=== PATIENT | female | born 1965 | race Caucasian/White ===

== ENCOUNTER 2016-07-27 13:54 | Inpatient (IN) | payer OTHER ==
[~2016-07-27] VITALS: Ht 157.5 cm; Wt 58.6 kg
[2016-07-27 17:30] VITALS: BP 140/67; PULSE 88; RESP 17
[2016-07-27 17:39] VITALS: Ht 157.5 cm; Wt 58.6 kg
[2016-07-27] MEDS ORDERED: DOCUSATE SODIUM 100 MG CAP PO PRN (19:00)
[2016-07-27] MEDS ORDERED: NACL 0.9% 3 ML SYG IV SCH (19:00)
[2016-07-27] MEDS ORDERED: ONDANSETRON 4 MG INJ IV PRN (19:00)
[2016-07-27] MEDS ORDERED: ACETAMINOPHEN 325 MG TAB PO PRN (19:00)
[2016-07-27] MEDS ORDERED: ZOLPIDEM 5 MG TAB PO PRN (19:00)
[2016-07-27] MEDS ORDERED: HYDROCODONE/APAP (5/325) TAB PO PRN (19:00)
[2016-07-27 20:00] VITALS: PULSE 90
[2016-07-27] MEDS ORDERED: GLUCOSE GEL 15 GRAM TUBE PO PRN ×2 (20:00)
[2016-07-27] MEDS ORDERED: GLUCAGON 1 MG INJ IM PRN (20:00)
[2016-07-27] MEDS ORDERED: GLUCOSE GEL 15 GRAM TUBE BUCCAL PRN (20:00)
[2016-07-27] MEDS ORDERED: DEXTROSE 50% 50 ML SYRINGE IV PRN ×2 (20:00)
[2016-07-27 20:11] VITALS: BP 158/54; RESP 16
[2016-07-27] MEDS ORDERED: INSULIN ASPART [NOVOLOG] 3 ML PEN SC ONE (22:00)
[2016-07-27] MEDS: INSULIN ASPART [NOVOLOG] 3 ML PEN SC SCH (22:14)
[2016-07-27] MEDS: morphine 2 MG INJ IV PRN (22:27)
[2016-07-28] VITALS (11 sets, daily range): BP systolic 119–149; BP diastolic 65–84; PULSE 80–92; RESP 18
[2016-07-28] MEDS: morphine 2 MG INJ IV PRN ×2 (01:25→19:48)
[2016-07-28] MEDS: SOD CHLORIDE 0.9% 1,000 ML IV SCH ×2 (01:26→11:30)
[2016-07-28] MEDS ORDERED: INSULIN GLARGINE [LANtus] 3 ML PEN SC ONE (01:30)
[2016-07-28] MEDS ORDERED: INSULIN ASPART [NOVOLOG] 3 ML PEN SC ONE (01:30)
[2016-07-28] MEDS: CEFEPIME 1GM/50 ML (PMX) 50 ML IVPB SCH ×3 (02:48→22:42)
[2016-07-28] MEDS: ACCU-CHEK XX SCH (02:54)
[2016-07-28 07:06] LABS: ADD SCAN DIFF NO
[2016-07-28 07:10] LABS: ALBUMIN 3.4 g/dl (3.3-4.9)
[2016-07-28 07:11] LABS: POTASSIUM 3.2 mmol/L (3.5-5.1)
[2016-07-28 07:13] LABS: BILIRUBIN,INDIRECT 0.3 mg/dl (0-1.1); BILIRUBIN,TOTAL 0.3 mg/dl (0.2-1.3); CREATININE 0.49 mg/dl (0.44-1.00); TOTAL PROTEIN 6.8 g/dl (6.1-8.1)
[2016-07-28 07:14] LABS: CALCIUM 8.8 mg/dl (8.4-10.2); CHOL/HDL RATIO 4.9 RATIO; MAGNESIUM 1.6 mg/dl (1.7-2.5); PHOSPHORUS 4.8 mg/dl (2.5-4.9)
[2016-07-28 07:15] LABS: BASOPHIL # 0.1 10^3/ul (0.0-0.1); BASOPHILS % 0.5 % (0.0-2.0); EOSINOPHILS # 0.2 10^3/ul (0.0-0.5); EOSINOPHILS % 1.9 % (0.0-7.0); HEMATOCRIT 35.1 % (37.0-47.0); HEMOGLOBIN 11.9 g/dl (12.0-16.0); LYMPHOCYTES # 2.8 10^3/ul (0.8-2.9); LYMPHOCYTES % 27.8 % (15.0-51.0); MEAN CORPUSCULAR HEMOGLOBIN 30.4 pg (29.0-33.0); MEAN CORPUSCULAR HGB CONC 33.9 g/dl (32.0-37.0); MEAN CORPUSCULAR VOLUME 89.8 fl (82.0-101.0); MEAN PLATELET VOLUME 10.8 fl (7.4-10.4); MONOCYTE # 0.9 10^3/ul (0.3-0.9); MONOCYTES % 8.5 % (0.0-11.0); NEUTROPHIL # 6.2 10^3/ul (1.6-7.5); PLATELET COUNT 250 10^3/UL (140-415); RED BLOOD COUNT 3.91 10^6/ul (4.20-5.40); RED CELL DISTRIBUTION WIDTH 12.7 % (11.5-14.5); WHITE BLOOD COUNT 10.2 10^3/ul (4.8-10.8)
[2016-07-28] MEDS: INSULIN ASPART [NOVOLOG] 3 ML PEN SC SCH ×6 (08:16→23:47)
--- NOTE | 2016-07-28 09:01 | HP ---
Date/Time of Note Date/Time of Note DATE: 07/28/16 TIME: 08:49 Assessment/Plan VTE Prophylaxis VTE Prophylaxis Intervention: SCD's Lines/Catheters IV Catheter Type (from Nrsg): Peripheral IV Urinary Cath still in place: No Assessment/Plan Assessment/Plan IMPRESSION 1. Pyelonephritis 2. Hx Diabetes 3. Hx of HTN PLAN Abx f/u urine and blood culture results pain mgmt Insulin for DM Adjust BP meds as needed Need vascular surgeon input regarding possible spleen and left kidney infarct to determine if anticoagulation is appropriate. HPI/ROS Admit Date/Time Admit Date/Time Jul 27, 2016 at 16:32 Hx of Present Illness This is a 50 yo female with hx of HTN and Diabetes who is transferred to [facility] because of insurance reason after she presented with fever and left flank pain. Work-up at outside hospital showed UTI and CT a/p showed possible splenic and left kidney embolic infarct. Denied CP, SOB, N/V. Currently, pt looks comfortable. . PMH/Family/Social Social History Smoking Status: Never smoker Exam/Review of Systems Vital Signs Vitals Vital Signs Date Time Temp Pulse Resp B/P Pulse Ox O2 Delivery O2 Flow Rate FiO2 07/28/16 08:18 86 07/28/16 06:56 98.6 18 133/78 98 07/27/16 17:30 Room Air Intake and Output 07/27/16 07/27/16 07/28/16 14:59 22:59 06:59 Intake Total 505 ml Balance 505 ml Exam Constitutional: alert, oriented, well developed Psych: nl mood/affect, no complaints Head: atraumatic, normocephalic Eyes: EOMI, PERRL Respiratory: clear to auscultation, normal air movement Cardiovascular: nl pulses, regular rate and rhythm Gastrointestinal: other (mild left flank tenderness), soft Extremities: normal pulses Labs Result Diagram: 07/28/1630 07/28/1630 Medications Medications Current Medications Ondansetron HCl (Zofran Inj) 4 mg Q6H PRN IV NAUSEA AND/OR VOMITING; Start at 19:00 Acetaminophen (Tylenol Tab) 650 mg Q6H PRN PO PAIN LEVEL 1-3 OR FEVER Last administered on 07/27/16t 22:04; Admin Dose 650 MG; Start 07/27/16 at 19:00 Acetaminophen/ Hydrocodone Bitart ([place] (5/325)) 1 tab Q6H PRN PO MODERATE PAIN LEVEL 4-6; Start 07/27/16 at 19:00 Morphine Sulfate (morphine) 2 mg Q4H PRN IV SEVERE PAIN LEVEL 7-10 Last administered on 07/28/16 01:25; Admin Dose 2 MG; Start 07/27/16 at 19:00 Docusate Sodium (Colace) 100 mg Q12H PRN PO CONSTIPATION; Start 07/27/16 at 19: 00 Zolpidem Tartrate (Ambien) 5 mg QHS PRN PO SLEEP; Start 07/27/16 at 19:00 Diagnostic Test (Pha) (Accu-Chek) 1 ea 02 XX Last administered on 07/28/16 02: 54; Admin Dose 1 EA; Start 07/28/16 at 02:00 Miscellaneous Information 1 ea NOTE XX ; Start 07/27/16 at 20:00 Glucose (Glutose) 15 gm Q15M PRN PO DECREASED GLUCOSE; Start 07/27/16 at 20:00 Glucose (Glutose) 22.5 gm Q15M PRN PO DECREASED GLUCOSE; Start 07/27/16 at 20: 00 Dextrose (D50w Syringe) 25 ml Q15M PRN IV DECREASED GLUCOSE; Start 07/27/16 at 20:00 Dextrose (D50w Syringe) 50 ml Q15M PRN IV DECREASED GLUCOSE; Start 07/27/16 at 20:00 Glucagon (Glucagen) 1 mg Q15M PRN IM DECREASED GLUCOSE; Start 07/27/16 at 20:00 Glucose 15 gm 15 gm Q15M PRN BUCCAL DECREASED GLUCOSE; Start 07/27/16 at 20:00 Cefepime HCl 50 ml @ 100 mls/hr Q12 IVPB Last administered on 07/28/16 08:13 ; Admin Dose 100 MLS/HR; Start 07/28/16 at 01:30 Sodium Chloride (NS) 1,000 ml @ 100 mls/hr Q10H IV Last administered on 01:26; Admin Dose 100 MLS/HR; Start 07/28/16 at 01:30 Insulin Glargine (Lantus) 15 unit QHS SC ; Start 07/28/16 at 21:00 LAMBERT ZARATE MD Jul 28, 2016 09:00
[2016-07-28] MEDS ORDERED: POTASSIUM CHLORIDE 30 MEQ in SOD CHLORIDE 0.9% 150 ML IVPB ONE (10:00)
[2016-07-28] MEDS ORDERED: MAGNESIUM SULFATE 2 GM/50 ML 50 ML IVPB ONE (12:00)
--- NOTE | 2016-07-28 12:15 | HP ---
DATE OF ADMISSION: 07/27/2016 VASCULAR SURGERY CONSULTATION: Dear Doctors, Mrs. Meza is a 50-year-old female who was transferred to [facility] from outside facility secondary for workup of fever, chills and left flank pain. It seems the patient had underg one a CT scan of the abdomen and pelvis that identified a possible left renal embolic infarct and sp lenic infarcts. A vascular surgery consultation was obtained. At the moment, the patient mentions that she has had a history of previous kidney infection, for which she was seen at an outside hospit [facility] and she was treated there with antibiotics. She denies any family history of hyp ercoagulable state and mentioned that her father is still living and her mom from cancer in her 80s. She has never had any issues with her . She denies any previous events of lower ext remity DVTs or thrombotic syndromes. REVIEW OF SYSTEMS: A 12-point review performed and negative except what is mentioned in the HPI. S he denies currently nausea, vomiting, fever, chills, shortness of breath, chest pain, lower extremit y claudication or rest pain-like symptoms. She denies abdominal pain. PAST MEDICAL HISTORY: Entails hypertension, diabetes, recurrent UTIs. SURGICAL HISTORY: None reported thus far. SOCIAL HISTORY: Denies tobacco, alcohol or illicit drug use or any herbal medications. FAMILY HISTORY: Positive for diabetes and hypertension. PHYSICAL EXAMINATION: GENERAL: Alert and oriented x3, no apparent distress. HEENT: Normocephalic, atraumatic. PERRLA, EOMI. Mucosa moist. NECK: Supple. No carotid bruit. PULMONARY: Clear to auscultation bilaterally. No crackles. CARDIOVASCULAR: S1, S2 present. No murmurs. ABDOMEN: Soft, nontender, nondistended. Bowel sounds positive. LOWER EXTREMITIES: Palpable femoral pulse, palpable pedal pulse. Motor, sensory intact. Cap refil l 2 to 3 seconds. No ulcers. ASSESSMENT AND PLAN: Left renal infarct and splenic infarct: It seems the patient has developed a possible finding on the CT scan of a possible embolic event. Will need to evaluate her aortoiliac d isease for possible embolization; therefore, would recommend obtaining a CT angiography of the abdo men and pelvis. 1. Would further recommend obtaining a 2D echo to evaluate for any cardiac source of an embolic ted rce. 2. Optimize vascular status (BP meds, diet, nutrition, exercise, sugar control, antiplatelets). 3. Discussed findings, plan and management with the patient with a certified transformation analyst and cookie. Thank you for allowing us to partake in the care of your patient. Please call with any questions. We may consider hypercoagulable workup after we have reviewed her imaging studies. Dictated By: VIMAL THAKKAR/SHARRI Conf#: [id number] DID#: [id number]
[2016-07-28] MEDS: SENNA TAB PO SCH (12:31)
[2016-07-28] MEDS ORDERED: IODIXANOL LOCM 100 ML BTL ONE (14:17)
[2016-07-28] MEDS ORDERED: IODIXANOL LOCM 50 ML BTL ONE (14:17)
[2016-07-28] MEDS ORDERED: SOD CHLORIDE 0.9% 100 ML ONE (14:17)
--- NOTE | 2016-07-28 15:42 | PN ---
Date/Time of Note Date/Time of Note DATE: 07/28/16 TIME: 15:38 Assessment/Plan VTE Prophylaxis VTE Prophylaxis Intervention: SCD's Lines/Catheters [facility]from [facility] Peripheral IV Urinary Cath still in place: No Assessment/Plan Chief Complaint/Hosp Course Assessment and plan 1. Pyelonephritis. Monitor for fevers. Antipyretics as needed. Await clinical response to antibiotic therapy. Follow up on urine culture 2. Diabetes. Continue on insulin regimen 3. History of hypertension. We'll provide with antihypertensives as needed 4. 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 Vascular surgeon following. Follow up on CTA of the abdomen and pelvis. Follow up on echocardiogram. Disposition and plan: Follow up on CTA of the abdomen. Follow-up echocardiogram. Continue on antibiotics. Discussed plan of care with Dr. Plaza Problems: Subjective 24 Hr Interval Summary Free Text/Dictation Still reports having some left flank pain l Exam/Review of Systems Vital Signs Vitals Vital Signs Date Time Temp Pulse Resp B/P Pulse Ox O2 Delivery O2 Flow Rate FiO2 07/28/16 15:34 97.9 82 18 145/84 99 07/27/16 17:30 Room Air Intake and Output 07/27/16 07/27/16 07/28/16 15:00 23:00 07:00 Intake Total 505 ml Balance 505 ml Exam Constitutional: alert, oriented Psych: No anxiety Head: atraumatic, normocephalic Eyes: nl conjunctiva Neck: non-tender, supple, No jvd Respiratory: clear to auscultation Cardiovascular: regular rate and rhythm Gastrointestinal: other (minimally tender left flank) Musculoskeletal: No swelling Neurological: SQL DBA II-XII intact, nl mental status, nl speech Skin: nl turgor, No rash or lesions Results Result Diagram: 07/28/1630 07/28/16 0630 Results 24 hrs Laboratory Tests Test 07/27/16 17:22 07/27/16 21:45 07/27/16 23:43 07/28/16 01:23 Bedside Glucose 244 H 357 H 296 H 256 H Test 07/28/16 02:52 07/28/16 06:30 07/28/16 07:45 07/28/16 12:00 Bedside Glucose 214 172 344 H White Blood Count 10.2 Red Blood Count 3.91 L Hemoglobin 11.9 L Hematocrit 35.1 L Mean Corpuscular Volume 89.8 Mean Corpuscular Hemoglobin 30.4 Mean Corpuscular Hemoglobin Concent 33.9 Red Cell Distribution Width 12.7 Platelet Count 250 Mean Platelet Volume 10.8 H Neutrophils % 61.0 Lymphocytes % 27.8 Monocytes % 8.5 Eosinophils % 1.9 Basophils % 0.5 Nucleated Red Blood Cells % 0.0 Neutrophils # 6.2 Lymphocytes # 2.8 Monocytes # 0.9 Eosinophils # 0.2 Basophils # 0.1 Nucleated Red Blood Cells # 0.0 Sodium Level 138 Potassium Level 3.2 L Chloride Level 103 Carbon Dioxide Level 25 Anion Gap 13 Blood Urea Nitrogen 11 Creatinine 0.49 Glucose Level 155 Hemoglobin A1c 12.2 H Calcium Level 8.8 Phosphorus Level 4.8 Magnesium Level 1.6 L Total Bilirubin 0.3 Direct Bilirubin 0.00 Indirect Bilirubin 0.3 Aspartate Amino Transf (AST/SGOT) 16 Alanine Aminotransferase (ALT/SGPT) 22 Alkaline Phosphatase 108 Total Protein 6.8 Albumin 3.4 Globulin 3.40 H Albumin/Globulin Ratio 1.00 Triglycerides Level 219 H Cholesterol Level 173 LDL Cholesterol, Calculated 94 HDL Cholesterol 35 L Cholesterol/HDL Ratio 4.9 Medications Medications Current Medications Ondansetron HCl (Zofran Inj) 4 mg Q6H PRN IV NAUSEA AND/OR VOMITING; Start at 19:00 Acetaminophen (Tylenol Tab) 650 mg Q6H PRN PO PAIN LEVEL 1-3 OR FEVER Last administered on 07/27/16 22:04; Admin Dose 650 MG; Start 07/27/16 at 19:00 Acetaminophen/ Hydrocodone Bitart ([place] (5/325)) 1 tab Q6H PRN PO MODERATE PAIN LEVEL 4-6; Start 07/27/16 at 19:00 Morphine Sulfate (morphine) 2 mg Q4H PRN IV SEVERE PAIN LEVEL 7-10 Last administered on 07/28/16 01:25; Admin Dose 2 MG; Start 07/27/16 at 19:00 Docusate Sodium (Colace) 100 mg Q12H PRN PO CONSTIPATION; Start 07/27/16 at 19: 00 Zolpidem Tartrate (Ambien) 5 mg QHS PRN PO SLEEP; Start 07/27/16 at 19:00 Diagnostic Test (Pha) (Accu-Chek) 1 ea 02 XX Last administered on 07/28/16 02: 54; Admin Dose 1 EA; Start 07/28/16 at 02:00 Miscellaneous Information 1 ea NOTE XX ; Start 07/27/16 at 20:00 Glucose (Glutose) 15 gm Q15M PRN PO DECREASED GLUCOSE; Start 07/27/16 at 20:00 Glucose (Glutose) 22.5 gm Q15M PRN PO DECREASED GLUCOSE; Start 07/27/16 at 20: 00 Dextrose (D50w Syringe) 25 ml Q15M PRN IV DECREASED GLUCOSE; Start 07/27/16 at 20:00 Dextrose (D50w Syringe) 50 ml Q15M PRN IV DECREASED GLUCOSE; Start 07/27/16 at 20:00 Glucagon (Glucagen) 1 mg Q15M PRN IM DECREASED GLUCOSE; Start 07/27/16 at 20:00 Glucose 15 gm 15 gm Q15M PRN BUCCAL DECREASED GLUCOSE; Start 07/27/16 at 20:00 Cefepime HCl 50 ml @ 100 mls/hr Q12 IVPB Last administered on 07/28/16 08:13 ; Admin Dose 100 MLS/HR; Start 07/28/16 at 01:30 Sodium Chloride (NS) 1,000 ml @ 100 mls/hr Q10H IV Last administered on 01:26; Admin Dose 100 MLS/HR; Start 07/28/16 at 01:30 Insulin Glargine (Lantus) 15 unit QHS SC ; Start 07/28/16 at 21:00 Senna (Senokot) 2 tab DAILY PO Last administered on 07/28/16 12:31; Admin Dose 2 TAB; Start 07/28/16 at 12:00 TOMMIE REDD Jul 28, 2016 15:42
--- NOTE | 2016-07-28 16:04 | RADRPT ---
PROCEDURE: CT angiogram of the chest, abdomen and pelvis with bilateral lower extremity runoff and with 3-D reconstructions CLINICAL INDICATION: splenic and left kidney embolic infarct. TECHNIQUE: CT angiogram of the chest, abdomen and pelvis was performed on a multislice CT scanner . The patient was scanned after administration of intravenous contrast. Sagittal and coronal refor matted images were obtained from the axial source images. 3D MIP reformatted images were also create d from the axial source images. DLP 919.03 mGycm CTDI vol 49.29, 6.81 mGy COMPARISON: None FINDINGS: ANGIOGRAM FINDINGS: There is no acute dissection or aneurysm of the thoracic or abdominal aorta. The ascending aorta measures 3.2 cm in diameter. The mid aortic arch measures 2.5 cm in diameter. The descending thoracic aorta measures 2.0 cm in diameter at the level of the left pulmonary artery and 1.8 cm in diameter just above the diaphragmatic hiatus. The celiac, SMA, and KELLIE are widely patent. The main renal arteries are widely patent. There is an accessory renal artery to the lower pole of the right kidney which is widely patent. Common, internal and external iliac arteries are patent bilaterally. Markedly dilated and tortuous bilateral uterine arteries are noted. The uterus has a mildly lobulat ed appearance, likely due to fibroids. RIGHT LOWER EXTREMITY: The SHEETFED PRESS OPERATOR, SFA, and profunda arteries are widely patent. The popliteal artery is widely patent. Infrapopliteal vessels are widely patent and there is good three-vessel runoff to the level of the a nkle. LEFT LOWER EXTREMITY: The SHEETFED PRESS OPERATOR, SFA, and profunda arteries are widely patent. The popliteal artery is widely patent. Infrapopliteal vessels are widely patent and there is good three-vessel runoff to the level of the a nkle. ANCILLARY FINDINGS: The liver is enlarged and demonstrates decreased density consistent with marked fatty infiltration. There are surgical clips in the right upper abdominal quadrant consistent with cholecystectomy. Right greater than left renal cortical scarring is noted. The spleen demonstrates decreased perfusio n posteriorly and inferiorly, likely due to the reported history of a splenic infarct. IMPRESSION: No acute dissection or aneurysm of the thoracic or abdominal aorta. The mesenteric arteries, splenic artery, bilateral renal arteries and an accessory right renal arter y are all widely patent. Right greater than left renal cortical scarring is noted as well as an are a of decreased perfusion in the posterior and inferior aspect of the spleen, likely due to the repor yessica history of infarcts. The arteries of the lower extremities are widely patent with good three-vessel runoff to the level o f the ankles. Enlarged fatty liver. Status post cholecystectomy. RPTAT: EE Physician Magi Date Time Electronically viewed and signed by Sky Boggs Physician on 07/28/2016 16:04 RA/
[2016-07-28] MEDS ORDERED: INSULIN ASPART [NOVOLOG] 3 ML PEN SC SCH (17:55)
[2016-07-28] MEDS ORDERED: INSULIN GLARGINE [LANtus] 3 ML PEN SC SCH (21:00)
[2016-07-29] VITALS (10 sets, daily range): BP systolic 110–147; BP diastolic 57–77; PULSE 76–95; RESP 16–20
[2016-07-29] MEDS: SOD CHLORIDE 0.9% 1,000 ML IV SCH ×4 (00:57→17:14)
[2016-07-29] MEDS: morphine 2 MG INJ IV PRN (00:58)
[2016-07-29] MEDS: ACCU-CHEK XX SCH (02:51)
[2016-07-29] MEDS: INSULIN ASPART [NOVOLOG] 3 ML PEN SC SCH ×7 (08:13→21:04)
[2016-07-29] MEDS: SENNA TAB PO SCH (09:15)
[2016-07-29] MEDS: CEFEPIME 1GM/50 ML (PMX) 50 ML IVPB SCH ×2 (09:15→21:05)
--- NOTE | 2016-07-29 15:46 | PN ---
Date/Time of Note Date/Time of Note DATE: 07/29/16 TIME: 15:42 Assessment/Plan VTE Prophylaxis VTE Prophylaxis Intervention: SCD's Lines/Catheters IV [facility]ter Type (from [facility]): Peripheral IV Urinary Cath still in place: No Assessment/Plan Chief Complaint/Hosp Course Assessment and plan 1. Pyelonephritis. Monitor for fevers. Antipyretics as needed. Await final urine culture. Continue antibiotics for now. 2. Diabetes. Continue on insulin regimen 3. History of hypertension. We'll provide with antihypertensives as needed 4. 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 Vascular surgeon following. Patient did have CTA that did show: - No acute dissection or aneurysm of the thoracic or abdominal aorta. - The mesenteric arteries, splenic artery, bilateral renal arteries and an accessory right renal artery are all widely patent. Right greater than left renal cortical scarring is noted as well as an area of decreased perfusion in the posterior and inferior aspect of the spleen, likely due to the reported history of infarcts.. Discussed with vascular surgeon. No plan for intervention at this time. Continue to monitor for now Disposition and plan: Continue on antibiotics. Follow up on final urine culture. Appears to be improving. Discharge when medically stable Discussed plan of care with Dr. Plaza Problems: Subjective 24 Hr Interval Summary Free Text/Dictation reports less pain at this time Exam/Review of Systems Vital Signs Vitals Vital Signs Date Time Temp Pulse Resp B/P Pulse Ox O2 Delivery O2 Flow Rate FiO2 07/29/16 15:08 97.7 75 18 110/57 100 07/27/16 17:30 Room Air Intake and Output 07/28/16 07/28/16 07/29/16 15:00 23:00 07:00 Intake Total 50 ml 1060 ml 1720 ml Balance 50 ml 1060 ml 1720 ml Exam Constitutional: alert, oriented Psych: nl mood/affect, no complaints Head: atraumatic, normocephalic Eyes: nl conjunctiva Neck: non-tender, supple, No jvd Respiratory: clear to auscultation Cardiovascular: nl pulses, regular rate and rhythm Gastrointestinal: non-tender, soft Musculoskeletal: nl extremities to inspection Extremities: normal pulses Neurological: SOCIAL SERVICE MANAGER II-XII intact, nl mental status, nl speech Skin: nl turgor Results Result Diagram: 07/28/16 0630 07/28/16 0630 Results 24 hrs Laboratory Tests Test 07/28/16 16:55 07/28/16 22:37 07/29/16 02:44 07/29/16 08:04 Bedside Glucose 238 H 262 H 251 H 224 H Test 07/29/16 11:55 Bedside Glucose 304 H Medications Medications Current Medications Ondansetron HCl (Zofran Inj) 4 mg Q6H PRN IV NAUSEA AND/OR VOMITING; Start at 19:00 Acetaminophen (Tylenol Tab) 650 mg Q6H PRN PO PAIN LEVEL 1-3 OR FEVER Last administered on 07/27/16 22:04; Admin Dose 650 MG; Start 07/27/16 at 19:00 Acetaminophen/ Hydrocodone Bitart ([place] (5/325)) 1 tab Q6H PRN PO MODERATE PAIN LEVEL 4-6; Start 07/27/16 at 19:00 Morphine Sulfate (morphine) 2 mg Q4H PRN IV SEVERE PAIN LEVEL 7-10 Last administered on 07/29/16 00:58; Admin Dose 2 MG; Start 07/27/16 at 19:00 Docusate Sodium (Colace) 100 mg Q12H PRN PO CONSTIPATION; Start 07/27/16 at 19: 00 Zolpidem Tartrate (Ambien) 5 mg QHS PRN PO SLEEP; Start 07/27/16 at 19:00 Diagnostic Test (Pha) (Accu-Chek) 1 ea 02 XX Last administered on 07/29/16 02: 51; Admin Dose 1 EA; Start 07/28/16 at 02:00 Miscellaneous Information 1 ea NOTE XX ; Start 07/27/16 at 20:00 Glucose (Glutose) 15 gm Q15M PRN PO DECREASED GLUCOSE; Start 07/27/16 at 20:00 Glucose (Glutose) 22.5 gm Q15M PRN PO DECREASED GLUCOSE; Start 07/27/16 at 20: 00 Dextrose (D50w Syringe) 25 ml Q15M PRN IV DECREASED GLUCOSE; Start 07/27/16 at 20:00 Dextrose (D50w Syringe) 50 ml Q15M PRN IV DECREASED GLUCOSE; Start 07/27/16 at 20:00 Glucagon (Glucagen) 1 mg Q15M PRN IM DECREASED GLUCOSE; Start 07/27/16 at 20:00 Glucose 15 gm 15 gm Q15M PRN BUCCAL DECREASED GLUCOSE; Start 07/27/16 at 20:00 Cefepime HCl 50 ml @ 100 mls/hr Q12 IVPB Last administered on 07/29/16 09:15 ; Admin Dose 100 MLS/HR; Start 07/28/16 at 01:30 Sodium Chloride (NS) 1,000 ml @ 100 mls/hr Q10H IV Last administered on 11:51; Admin Dose 100 MLS/HR; Start 07/28/16 at 01:30 Senna (Senokot) 2 tab DAILY PO Last administered on 07/29/16 09:15; Admin Dose 2 TAB; Start 07/28/16 at 12:00 Insulin Glargine (Lantus) 20 unit QHS SC ; Start 07/29/16 at 21:00 TOMMIE REDD Jul 29, 2016 15:46
[2016-07-29] MEDS ORDERED: INSULIN GLARGINE [LANtus] 3 ML PEN SC SCH (21:00)
[2016-07-30] VITALS (9 sets, daily range): BP systolic 126–143; BP diastolic 61–75; PULSE 72–84; RESP 20
[2016-07-30] MEDS: ACCU-CHEK XX SCH (02:00)
[2016-07-30] MEDS: SOD CHLORIDE 0.9% 1,000 ML IV SCH (04:02)
[2016-07-30] MEDS: INSULIN ASPART [NOVOLOG] 3 ML PEN SC SCH ×4 (08:00→12:32)
[2016-07-30] MEDS: SENNA TAB PO SCH (08:47)
[2016-07-30] MEDS: CEFEPIME 1GM/50 ML (PMX) 50 ML IVPB SCH (09:10)
[2016-07-30] MEDS ORDERED: LANT3I SC (12:17)
[2016-07-30] MEDS ORDERED: CIPR500T4 PO (12:17)
[2016-07-30] MEDS ORDERED: SACC250C PO (12:17)
[2016-07-30] MEDS ORDERED: NOVO3I SC (12:17)
--- NOTE | 2016-07-30 12:18 | PDOCDIS ---
Discharge Instructions DIAGNOSIS Discharge Diagnosis: 1. pyelonephritis 2. diabetes CONDITION Patient Condition: Stable HOME CARE INSTRUCTIONS: Special Diet: 1800 ada FOLLOW UP/APPOINTMENTS Appointments 1. Follow up with your primary care provider in one week TOMMIE REDD Jul 30, 2016 12:18
--- NOTE | 2016-07-31 11:00 | RADRPT ---
Echocardiogram Report Patient Name: WILDER COOK Gender: Female Date: 1965 Study Date: 29-Jul-2016 Measurement Superintendent: JANAY Location: I Ref. Physician: TOMMIE REDD Quality: Adequate Procedures: Transthoracic echocardiogram complete 2D, M-Mode, and Doppler examination, difficult subcostal images. Indications: Suspect valvular emboli. 2D/M Mode Doppler Measurement Value Normal Ranges Measurement Value Normal Ranges AoR Diam MM 2.9 cm AV Peak Mati 1.2 m/sec ACS MM 1.9 cm AV Peak PG 6.2 mmHg LVIDd 2D 3.6 3.5 - 5.6 cm LVOT Peak Mati 1.1 m/sec LVIDs 2D 2.2 2.1 - 4.1 cm LVOT Peak PG 4.6 mmHg LVPWd 2D 1.0 0.6 - 1.1 cm MV E Peak Mati 1.0 m/sec IVSd 2D 1.0 0.6 - 1.1 cm MV A Peak Mati 1.1 m/sec EDV 2D 54.6 cm3 MV E/A 0.9 ESV 2D 10.8 cm3 MV Decel Time 193 msec LA Dimen 2D 3.1 2.3 - 4.0 cm MV Decel Merrick 5 MV E/A 0.9 PV Peak Mati 0.9 m/sec PV Peak PG 4.0 mmHg Findings Left Ventricle: Normal left ventricular systolic function. Normal left ventricular cavity size. Mild concentric left ventricular hypertrophy. Ejection fraction is visually estimated at 60 %. Tissue Doppler/Mitral Doppler indices are within normal limits. Right Ventricle: Normal right ventricular size. Normal right ventricular systolic function. Left Atrium: The left atrium is normal in size. Right Atrium: The right atrium is normal in size. Atrial Septum: Normal atrial septum. Mitral Valve: Normal appearance and function of the mitral valve with trace physiologic regurgitation. Aortic Valve: No significant aortic stenosis or insufficiency. Normal trileaflet aortic valve structure. Tricuspid Valve: Normal appearance of the tricuspid valve. Unable to obtain RVSP due to minimal presence of tricuspid regurgitation. There is trace tricuspid regurgitation. Pulmonic Valve: Normal pulmonic valve appearance. There is mild pulmonic regurgitation. Pericardium: Normal pericardium with no significant pericardial effusion. Aorta: Normal aortic root. IVC: Normal size and normal respiratory collapse consistent with normal right atrial pressure. Pulmonary Artery: Normal pulmonary artery size. Conclusions 1.Normal left ventricular systolic function. Normal left ventricular cavity size. Mild concentric left ventricular hypertrophy. Ejection fraction is visually estimated at 60 %. Tissue Doppler/Mitral Doppler indices are within normal limits. 2.No significant valvular stenosis or regurgitation seen. 3.Unable to obtain RVSP due to minimal presence of tricuspid regurgitation. RA pressure is 3 mmHg. Electronically Signed By: Brennon Locke 31-Jul-2016 10:59:07 -0700 Patient Name: WILDER COOK Study Date: 29-Jul-2016 [id number]
== END 2016-07-30 15:50 | disposition home or self-care (01) | DRG 690 ==
LOC: TEL 16:32
PROVIDERS: ADMIT Family Medicine; ATTEND Family Medicine
DX: N12 Tubulo-interstitial nephritis, not specified as acute or chronic (principal); N28.0 Ischemia and infarction of kidney; I10 Essential (primary) hypertension; E11.9 Type 2 diabetes mellitus without complications; Z79.4 Long term (current) use of insulin
CPT/HCPCS: 75635; 80053; 80061; 82962; 83036; 83735; 84100; 85025; 87086; 93306; J0692; J1815; J2270; J3475; J7030; Q9967

== ENCOUNTER 2016-08-02 17:02 | Emergency (ER) | payer OTHER ==
[~2016-08-02] VITALS: Ht 157.5 cm; Wt 55.0 kg
[~2016-08-02 17:02] MED LIST: CIPR500T4 PO; LANT3I SC; NOVO3I SC; SACC250C PO
[2016-08-02 17:17] VITALS: Ht 157.5 cm; Wt 55.0 kg
[2016-08-02 22:23] LABS: ADD SCAN DIFF NO
[2016-08-02 22:27] LABS: ADD UMIC NO; URINE BILIRUBIN (Dip) NEGATIVE (NEGATIVE); URINE BLOOD (Dip) NEGATIVE (NEGATIVE); URINE COLOR LT. YELLOW (YELLOW); URINE GLUCOSE (Dip) >=1000 % (NEGATIVE); URINE KETONES (Dip) NEGATIVE (NEGATIVE); URINE LEUKOCYTE ESTERASE (Dip) NEGATIVE (NEGATIVE); URINE NITRITE (Dip) NEGATIVE (NEGATIVE); URINE TOTAL PROTEIN (Dip) NEGATIVE (NEGATIVE); URINE UROBILINOGEN (Dip) 0.2 E.U./dL (0.1-1.0)
[2016-08-02 22:35] LABS: HEMATOCRIT 34.7 % (37.0-47.0); HEMOGLOBIN 11.9 g/dl (12.0-16.0); MEAN CORPUSCULAR HEMOGLOBIN 31.2 pg (29.0-33.0); MEAN CORPUSCULAR HGB CONC 34.3 g/dl (32.0-37.0); MEAN CORPUSCULAR VOLUME 91.1 fl (82.0-101.0); MEAN PLATELET VOLUME 10.4 fl (7.4-10.4); PLATELET COUNT 392 10^3/UL (140-415); RED BLOOD COUNT 3.81 10^6/ul (4.20-5.40); RED CELL DISTRIBUTION WIDTH 12.6 % (11.5-14.5); WHITE BLOOD COUNT 8.8 10^3/ul (4.8-10.8)
[2016-08-02 22:39] LABS: POTASSIUM 3.9 mmol/L (3.5-5.1)
[2016-08-02 22:41] LABS: CREATININE 0.56 mg/dl (0.44-1.00)
[2016-08-02 23:19] LABS: EOSINOPHILS # 0.2 10^3/ul (0.0-0.5); LYMPHOCYTES # 3.9 10^3/ul (0.8-2.9); MONOCYTE # 0.6 10^3/ul (0.3-0.9); NEUTROPHIL # 3.9 10^3/ul (1.6-7.5); PLATELET ESTIMATE PLT APPEAR ADEQUATE
[2016-08-02 23:39] VITALS: BP 134/70; PULSE 77; RESP 20; TEMP 98.2
--- NOTE | 2016-08-03 | ERD ---
ER Documentation Chief Complaint Date/Time DATE: 08/02/16 TIME: 23:55 Chief Complaint RECENTLY ADMITTED AND DC'D FOR KIDNEY INFECTION HPI 50-year-old female with a past medical history of diabetes and hypertension presents to the ED for a follow-up examination. States that she was called 4 days ago and was asked to come into the ER for further evaluation. 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 CT angiography showed right greater than left renal cortical scarring is noted as well as an area of decreased perfusion in the posterior and inferior aspect of the spleen, likely due to the reported history of infarcts. Patient was diagnosed and discharged with a prescription for Ciprofloxacin to treat pyelonephritis. Patient states that she feels better. Denies any flank pain, abdominal pain, nausea, vomiting, fever, chills, dizziness, weakness, diarrhea, dysuria, hematuria, urgency, frequency. Patient states that she has been taking her antibiotics consistently. ROS All systems reviewed and are negative except as per history of present illness. Medications Home Meds Active Scripts Saccharomyces Boulardii* (Florastor*) 250 Mg Cap, 500 MG PO BID, #14 CAP Prov:TOMMIE REDD 07/30/16 Ciprofloxacin Hcl* (Ciprofloxacin Hcl*) 500 Mg Tablet, 500 MG PO BID, #14 TAB Prov:TOMMIE REDD 07/30/16 Insulin Glargine* (Lantus*) 100 Unit/Ml Soln, 20 UNIT SC QHS for 30 Days Prov:TOMMIE REDD 07/30/16 Insulin Aspart* (Novolog Insulin Pen*) 100 Unit/Ml Soln, 7 UNIT SC WITH MEALS for 30 Days Prov:TOMMIE REDD 07/30/16 Allergies Allergies: Coded Allergies: No Known Allergy (Unverified , 07/27/16) PMhx/Soc History of Surgery: Yes (hysterectomy) Anesthesia Reaction: No Hx Neurological Disorder: No Hx Respiratory Disorders: No Hx Cardiac Disorders: Yes (HTN) Hx Psychiatric Problems: No Hx Miscellaneous Medical Probl: No Hx Alcohol Use: No Hx Substance Use: No Hx Tobacco Use: No Smoking Status: Never smoker Physical Exam Vitals Vital Signs Date Time Temp Pulse Resp B/P Pulse Ox O2 Delivery O2 Flow Rate FiO2 08/02/16 23:39 98.2 77 20 134/70 98 Room Air 08/02/16 17:17 98.0 81 17 135/69 99 Physical Exam Const: Rpe-jgl-fjxvvxywk, well-nourished. In no acute distress. Head: Atraumatic, normocephalic Eyes: Normal Conjunctiva without injection. No purulent discharge. ENT: Normal external ear, nose. Moist oropharynx without tonsillar exudates. Non -erythematous pharynx. Uvula midline. No drooling. No trismus. Neck: No cervical midline tenderness. Full range of motion. No meningismus. No cervical lymphadenopathy. No JVD. Resp: Clear to auscultation bilaterally. No wheezing, rhonchi, rales, or crackles. No accessory muscle use. No retractions. Cardio: Regular rate and rhythm. No murmurs, rubs or gallops. Abd: Soft, nontender, non distended. Normal bowel sounds. No palpable masses. No rebound tenderness. No guarding. Negative McBurney's point. Negative psoas sign. Negative obturator sign. Skin: No petechiae or rashes Back: No midline tenderness. No CVA tenderness. Ext: No cyanosis, or edema. Neur: Awake and alert. Normal gait. Normal coordination. Psych: Normal Mood and Affect Result Diagram: 08/02/16215508/02/162155 Results 24 hrs Laboratory Tests Test 08/02/16 21:45 08/02/16 21:56 Urine Color LT. YELLOW Urine Clarity CLEAR Urine pH 5.0 Urine Specific [place] >=1.030 Urine Ketones NEGATIVE Urine Nitrite NEGATIVE Urine Bilirubin NEGATIVE Urine Urobilinogen 0.2 E.U./dL Urine Leukocyte Esterase NEGATIVE Urine Hemoglobin NEGATIVE Urine Glucose >=1000% Urine Total Protein NEGATIVE White Blood Count 8.810^3/ul Red Blood Count 3.8110^6/ul Hemoglobin 11.9g/dl Hematocrit 34.7% Mean Corpuscular Volume 91.1fl Mean Corpuscular Hemoglobin 31.2pg Mean Corpuscular Hemoglobin Concent 34.3g/dl Red Cell Distribution Width 12.6% Platelet Count 89539^3/UL Mean Platelet Volume 10.4fl Neutrophils % 44.0% Lymphocytes % 44.0% Reactive Lymphocytes % 3.0% Monocytes % 7.0% Eosinophils % 2.0% Neutrophils # 3.910^3/ul Lymphocytes # 3.910^3/ul Monocytes # 0.610^3/ul Eosinophils # 0.210^3/ul Platelet Estimate PLT APPEAR ADEQUATE Sodium Level 135mmol/L Potassium Level 3.9mmol/L Chloride Level 98mmol/L Carbon Dioxide Level 24mmol/L Anion Gap 17 Blood Urea Nitrogen 20mg/dl Creatinine 0.56mg/dl Glucose Level 352mg/dl Calcium Level 10.0mg/dl Procedures/MDM This is a 50-year-old female patient with a past medical history of diabetes and hypertension presents to the ED for a follow-up examination. Patient is afebrile and nontoxic-appearing. This case was discussed with my supervising physician, Dr. Qiu. We both agreed to order a CBC, BMP, UA to further evaluate patient. CBC: No leukocytosis. No e/o of systemic infection. No e/o anemia. BMP: No e/o severe acidosis, alkalosis, renal failure, diabetic ketoacidosis Urine: No leukocyte esterase, no nitrites, no hematuria. Patient's initial BUN was 11 and creatinine was 0.49 on July 28, 2016. Today her BUN is 20 and creatinine is 0.56. Patient's labs are within normal limits. Low suspicion for acute renal injury/failure, DKA, appendicitis, cholecystitis , bowel obstruction, dehydration, acute splenic or renal injury, or other emergent conditions. This was discussed with my supervising physician, Dr. Qiu who agreed that patient can be managed on an outpatient basis. Previous patient's visit stated that vascular surgeon stated that patient did not need anticoagulation treatment at this time, plan is for monitoring. Strictly instructed patient to receive good follow up care with primary care physician for monitoring. Discharge medications: Continue to take and complete the course of antibiotics. Follow up with primary care physician in 1-2 days. Instructed patient to return to the ED sooner for any worsening symptoms. Patient's questions were answered. Patient understood and agreed with discharge plan. Patient discharged stable. Departure Diagnosis: Primary Impression: Follow-up examination Condition: Stable Patient Instructions: Pyelonephritis Referrals: COMMUNITY CLINICS YOU HAVE RECEIVED A MEDICAL SCREENING EXAM AND THE RESULTS INDICATE THAT YOU DO NOT HAVE A CONDITION THAT REQUIRES URGENT TREATMENT IN THE EMERGENCY DEPARTMENT. FURTHER EVALUATION AND TREATMENT OF YOUR CONDITION CAN WAIT UNTIL YOU ARE SEEN IN YOUR DOCTORS OFFICE WITHIN THE NEXT 1-2 DAYS. IT IS YOUR RESPONSIBILITY TO MAKE AN APPOINTMENT FOR FOLOW-UP CARE. IF YOU HAVE A PRIMARY DOCTOR --you should call your primary doctor and schedule an appointment IF YOU DO NOT HAVE A PRIMARY DOCTOR YOU CAN CALL OUR PHYSICIAN REFERRAL HOTLINE AT IF YOU CAN NOT AFFORD TO SEE A PHYSICIAN YOU CAN CHOSE FROM THE FOLLOWING [facility] [address] [facility] [address] [facility] [address] [facility] [address] [facility] [address] [facility] [address] [address] [facility] [address] [facility] [facility] YOU HAVE RECEIVED A MEDICAL SCREENING EXAM AND THE RESULTS INDICATE THAT YOU DO NOT HAVE A CONDITION THAT REQUIRES URGENT TREATMENT IN THE EMERGENCY DEPARTMENT. FURTHER EVALUATION AND TREATMENT OF YOUR CONDITION CAN WAIT UNTIL YOU ARE SEEN IN YOUR DOCTORS OFFICE WITHIN THE NEXT 1-2 DAYS. IT IS YOUR RESPONSIBILITY TO MAKE AN APPOINTMENT FOR FOLOW-UP CARE. IF YOU HAVE A PRIMARY DOCTOR --you should call your primary doctor and schedule and appointment IF YOU DO NOT HAVE A PRIMARY DOCTOR YOU CAN CALL OUR PHYSICIAN REFERRAL HOTLINE AT . IF YOU CAN NOT AFFORD TO SEE A PHYSICIAN YOU CAN CHOSE FROM THE FOLLOWING [facility]: [facility] [address] [place] [address] [facility] [address] [place] [address] [facility] [address] [place] [address] [facility] URGENT CARE/SPECIALTIES Additional Instructions: Llame al doctor MAANA y jacqui aly SREEKANTH PARA DENTRO DE 1-2 MARTELL.Dgale a la secretaria que nosotros le instruimos hacer esta sreekanth.Avise o llame si fisher condicin se empeora antes de la sreekanth. Regresa aqui si peor o no mejor. ALMA SINGLETON PA-C Aug 03, 2016 00:00
== END 2016-08-02 23:40 | disposition home or self-care (01) ==
LOC: FTE 17:02
DX: Z09 Encounter for follow-up examination after completed treatment for conditions other than malignant neoplasm (principal); I10 Essential (primary) hypertension; E11.9 Type 2 diabetes mellitus without complications; Z79.4 Long term (current) use of insulin
CPT/HCPCS: 36415; 80048; 81003; 85025; 99283

== ENCOUNTER 2016-09-04 18:57 | Emergency (ER) | payer OTHER ==
[~2016-09-04] VITALS: Ht 157.5 cm; Wt 52.2 kg
[2016-09-04 19:09] VITALS: Ht 157.5 cm; Wt 52.2 kg
[2016-09-04] MEDS ORDERED: SOD CHLORIDE 0.9% 1,000 ML IV STA (20:00)
[2016-09-04] MEDS ORDERED: ONDANSETRON 4 MG INJ IV STA (20:00)
[2016-09-04] MEDS: morphine 2 MG INJ IV STA ×2 (20:26→22:35)
[2016-09-04] MEDS ORDERED: INSU100I12 SQ (20:28)
[2016-09-04] MEDS ORDERED: METF1000 PO (20:30)
[2016-09-04] MEDS ORDERED: LISI10TA2 PO (20:30)
[2016-09-04] MEDS ORDERED: LANT3I SC (20:32)
[2016-09-04 20:54] LABS: ADD SCAN DIFF NO
[2016-09-04 20:58] LABS: BASOPHILS % 0.4 % (0.0-2.0); EOSINOPHILS # 0.2 10^3/ul (0.0-0.5); EOSINOPHILS % 1.9 % (0.0-7.0); HEMATOCRIT 38.4 % (37.0-47.0); HEMOGLOBIN 12.7 g/dl (12.0-16.0); LYMPHOCYTES # 3.8 10^3/ul (0.8-2.9); LYMPHOCYTES % 42.1 % (15.0-51.0); MEAN CORPUSCULAR HEMOGLOBIN 30.3 pg (29.0-33.0); MEAN CORPUSCULAR HGB CONC 33.1 g/dl (32.0-37.0); MEAN CORPUSCULAR VOLUME 91.6 fl (82.0-101.0); MEAN PLATELET VOLUME 10.9 fl (7.4-10.4); MONOCYTE # 0.4 10^3/ul (0.3-0.9); MONOCYTES % 4.7 % (0.0-11.0); NEUTROPHIL # 4.6 10^3/ul (1.6-7.5); NEUTROPHILS % 50.7 % (39.0-77.0); PLATELET COUNT 352 10^3/UL (140-415); RED BLOOD COUNT 4.19 10^6/ul (4.20-5.40); RED CELL DISTRIBUTION WIDTH 12.9 % (11.5-14.5); WHITE BLOOD COUNT 9.1 10^3/ul (4.8-10.8)
[2016-09-04 21:00] LABS: ADD UMIC NO; URINE BILIRUBIN (Dip) NEGATIVE (NEGATIVE); URINE BLOOD (Dip) NEGATIVE (NEGATIVE); URINE COLOR LT. YELLOW (YELLOW); URINE GLUCOSE (Dip) >=1000 % (NEGATIVE); URINE KETONES (Dip) NEGATIVE (NEGATIVE); URINE LEUKOCYTE ESTERASE (Dip) NEGATIVE (NEGATIVE); URINE NITRITE (Dip) NEGATIVE (NEGATIVE); URINE TOTAL PROTEIN (Dip) NEGATIVE (NEGATIVE); URINE UROBILINOGEN (Dip) 0.2 E.U./dL (0.1-1.0)
[2016-09-04 21:16] LABS: ALBUMIN 4.4 g/dl (3.3-4.9); POTASSIUM 3.9 mmol/L (3.5-5.1)
[2016-09-04 21:18] LABS: BILIRUBIN,INDIRECT 0.1 mg/dl (0-1.1); BILIRUBIN,TOTAL 0.1 mg/dl (0.2-1.3); CREATININE 0.61 mg/dl (0.44-1.00)
[2016-09-04 21:19] LABS: ALBUMIN/GLOBULIN RATIO 1.25; CALCIUM 9.9 mg/dl (8.4-10.2); TOTAL PROTEIN 7.9 g/dl (6.1-8.1)
--- NOTE | 2016-09-04 23:48 | RADRPT ---
PROCEDURE: XR Abdomen. CLINICAL INDICATION: Abdominal pain. TECHNIQUE: 4 frontal views of the abdomen. COMPARISON: None. FINDINGS: The bowel gas pattern is unremarkable. Cholecystectomy clips are present. There is no bowel obstruct ion or free air. There is no organomegaly. There is no abnormal calcification. There are small to moderate marginal osteophytes along the spine. IMPRESSION: Unremarkable bowel gas pattern. Status post cholecystectomy. .Puneet Bello MD, MD Date Time Electronically viewed and signed by .Puneet Bello MD, on 09/04/2016 23:48 .T/
[2016-09-05] MEDS ORDERED: KETOROLAC 30 MG INJ IV STA (00:20)
[2016-09-05] MEDS ORDERED: NAPR-688 PO (00:26)
[2016-09-05] MEDS ORDERED: POLY17PO6 PO (00:26)
[2016-09-05] MEDS ORDERED: RANI150T9 PO (00:26)
[2016-09-05] MEDS ORDERED: ONDA4TAB11 PO (00:29)
--- NOTE | 2016-09-05 00:35 | ERD ---
ER Documentation Chief Complaint Date/Time DATE: 09/05/16 TIME: 00:31 Chief Complaint AP X1 WK OFF AND ON. RECENTLY D/C FROM [facility] 07/30. FEELS TIRED HPI 51-year-old female reports abdominal pain on and off for a week it is crampy pain in different parts of her abdomen at different times but it comes and goes.. States that she is constipated currently. She is more tired than usual. She denies fever and chills. Denies vomiting. ROS All systems reviewed and are negative except as per history of present illness. Medications Home Meds Active Scripts Ondansetron (Zofran Odt) 4 Mg Tab.rapdis, 4 MG PO Q6, #10 Prov:LEONELAKEV DO 09/05/16 Polyethylene Glycol* (Miralax*) 17 Gm Powd.pack, 17 GM PO DAILY, #7 PACKET Prov:LEONELAKEV DO 09/05/16 Naproxen* (Naproxen*) 500 Mg Tablet, 500 MG PO BID Y for PAIN, #20 TAB Prov:LEONELAKEV DO 09/05/16 Ranitidine Hcl* (Zantac*) 150 Mg Tablet, 150 MG PO BID Y for EPIGASTRIC PAIN, # 30 TAB Prov:KEV GIPSON DO 09/05/16 Reported Medications Insulin Glargine* (Lantus*) 100 Unit/Ml Soln, 20 UNIT SC QHS, #1 VIAL 09/04/16 Lisinopril* (Lisinopril*) 10 Mg Tablet, 10 MG PO DAILY, #30 TAB 09/04/16 Metformin Hcl* (Metformin Hcl*) 1,000 Mg Tablet, 1000 MG PO WITH BREAKFAST DINNE , #60 TAB 09/04/16 Insulin Lispro (Humalog Kwikpen U-100) 100 Unit/1 Ml Insuln.pen, 7 UNIT SQ AC MEALS 09/04/16 Discontinued Scripts Saccharomyces Boulardii* (Florastor*) 250 Mg Cap, 500 MG PO BID, #14 CAP Prov:TOMMIE REDD 07/30/16 Ciprofloxacin Hcl* (Ciprofloxacin Hcl*) 500 Mg Tablet, 500 MG PO BID, #14 TAB Prov:TOMMIE REDD 07/30/16 Insulin Glargine* (Lantus*) 100 Unit/Ml Soln, 20 UNIT SC QHS for 30 Days Prov:TOMMIE REDD 07/30/16 Insulin Aspart* (Novolog Insulin Pen*) 100 Unit/Ml Soln, 7 UNIT SC WITH MEALS for 30 Days Prov:TOMMIE REDD 07/30/16 Allergies Allergies: Coded Allergies: No Known Allergy (Unverified , 09/04/16) PMhx/Soc History of Surgery: Yes (hysterectomy) Anesthesia Reaction: No Hx Neurological Disorder: No Hx Respiratory Disorders: No Hx Cardiac Disorders: Yes (HTN) Hx Psychiatric Problems: No Hx Miscellaneous Medical Probl: No Hx Alcohol Use: No Hx Substance Use: No Hx Tobacco Use: No Smoking Status: Never smoker Physical Exam Vitals Vital Signs Date Time Temp Pulse Resp B/P Pulse Ox O2 Delivery O2 Flow Rate FiO2 09/04/16 23:10 98.2 76 16 135/85 100 Room Air 09/04/16 19:09 97.4 94 18 133/67 99 Physical Exam Const: [] No distress Head: Atraumatic Eyes: Normal Conjunctiva ENT: Normal External Ears, Nose and Mouth. Neck: Full range of motion..~ No meningismus. Resp: Clear to auscultation bilaterally Cardio: Regular rate and rhythm, no murmurs Abd: Soft, mild mid left abdominal pain without guarding or rebound, non distended. Normal bowel sounds Skin: No petechiae or rashes Back: No midline or flank tenderness Ext: No cyanosis, or edema Neur: Awake and alert and oriented 3, no focal deficits Psych: Normal Mood and Affect Result Diagram: 09/04/16201909/04/162019 Results 24 hrs Laboratory Tests Test 09/04/16 20:20 09/04/16 20:28 White Blood Count 9.110^3/ul Red Blood Count 4.1910^6/ul Hemoglobin 12.7g/dl Hematocrit 38.4% Mean Corpuscular Volume 91.6fl Mean Corpuscular Hemoglobin 30.3pg Mean Corpuscular Hemoglobin Concent 33.1g/dl Red Cell Distribution Width 12.9% Platelet Count 53568^3/UL Mean Platelet Volume 10.9fl Neutrophils % 50.7% Lymphocytes % 42.1% Monocytes % 4.7% Eosinophils % 1.9% Basophils % 0.4% Nucleated Red Blood Cells % 0.0/100WBC Neutrophils # 4.610^3/ul Lymphocytes # 3.810^3/ul Monocytes # 0.410^3/ul Eosinophils # 0.210^3/ul Basophils # 0.010^3/ul Nucleated Red Blood Cells # 0.010^3/ul Sodium Level 136mmol/L Potassium Level 3.9mmol/L Chloride Level 95mmol/L Carbon Dioxide Level 23mmol/L Anion Gap 22 Blood Urea Nitrogen 27mg/dl Creatinine 0.61mg/dl Glucose Level 368mg/dl Calcium Level 9.9mg/dl Total Bilirubin 0.1mg/dl Direct Bilirubin 0.00mg/dl Indirect Bilirubin 0.1mg/dl Aspartate Amino Transf (AST/SGOT) 18IU/L Alanine Aminotransferase (ALT/SGPT) 27IU/L Alkaline Phosphatase 144IU/L Total Protein 7.9g/dl Albumin 4.4g/dl Globulin 3.50g/dl Albumin/Globulin Ratio 1.25 Lipase 151U/L Urine Color LT. YELLOW Urine Clarity CLEAR Urine pH 5.0 Urine Specific [place] 1.015 Urine Ketones NEGATIVE Urine Nitrite NEGATIVE Urine Bilirubin NEGATIVE Urine Urobilinogen 0.2 E.U./dL Urine Leukocyte Esterase NEGATIVE Urine Hemoglobin NEGATIVE Urine Glucose >=1000% Urine Total Protein NEGATIVE Current Medications Medications (Trade) Dose Ordered Sig/Theresa Route PRN Reason Start Time Stop Time Status Last Admin Dose Admin Sodium Chloride (NS) 1,000 ml @ 1,000 mls/hr Q1H STAT IV 09/04/16 20:00 09/04/16 20:59 DC 09/04/16 20:28 Morphine Sulfate (morphine) 2 mg ONCE STAT IV 09/04/16 20:00 09/04/16 20:02 DC 09/04/16 22:35 Ondansetron HCl (Zofran Inj) 4 mg ONCE STAT IV 09/04/16 20:00 09/04/16 20:02 DC 09/04/16 20:28 Ketorolac Tromethamine (Toradol) 30 mg ONCE STAT IV 09/05/16 00:20 09/05/16 00:21 DC Procedures/MDM Abdominal pain and constipation. Also has elevated sugar. She was given normal saline as well as morphine with Zofran along her morphine. She has a benign abdominal exam except for the high sugar has no other abnormalities. No DKA. I have very low suspicion for any surgical abdominal emergency. Patient states that she has medication and takes insulin at home for sugar and also has a way to monitor it. Not going to give any additional hypoglycemic medicines at this time. Will give her some MiraLAX for constipation as well as Zantac and naproxen. 2 mg of morphine made her pain much better than Toradol IV almost relieved her abdominal pain. Abdominal x-ray interpretation: I see no acute process, some retained stool in the left colon, nonspecific bowel gas pattern, no free air, no fractures Departure Diagnosis: Primary Impression: Hyperglycemia Additional Impression: Abdominal pain Condition: Stable Patient Instructions: Abdominal Pain, Diabetic Hyperglycemia Referrals: [facility] (PCP) Additional Instructions: Llame al doctor MAANA y jacqui aly SREEKANTH PARA DENTRO DE 2-3 MARTELL.Dgale a la secretaria que nosotros le instruimos hacer esta sreekanth.Avise o llame si fisher condicin se empeora antes de la sreekanth. Regresa aqui si peor o no mejor. KEV GIPSON DO September 05, 2016 00:35
[2016-09-05 00:40] VITALS: BP 130/80; PULSE 75; RESP 16; TEMP 98.2
== END 2016-09-05 00:40 | disposition home or self-care (01) ==
LOC: FTE 18:57 → E/R 09-05 00:40
DX: E11.9 Type 2 diabetes mellitus without complications (principal); I10 Essential (primary) hypertension; Z79.4 Long term (current) use of insulin; Z79.84 Long term (current) use of oral hypoglycemic drugs
CPT/HCPCS: 36415; 74010; 80053; 81003; 83690; 85025; 96374; 96375; J1885; J2270; J2405; J7030; Z7502

== ENCOUNTER 2016-09-27 17:20 | Emergency (ER) | payer OTHER ==
[~2016-09-27] VITALS: Ht 152.4 cm; Wt 53.0 kg
[~2016-09-27 17:20] MED LIST changes: -CIPR500T4 PO; +INSU100I12 SQ; +LISI10TA2 PO; +METF1000 PO; +NAPR-688 PO; -NOVO3I SC; +ONDA4TAB11 PO; +POLY17PO6 PO; +RANI150T9 PO; -SACC250C PO
[2016-09-27 17:31] VITALS: Ht 152.4 cm; Wt 53.0 kg
[2016-09-27] MEDS ORDERED: AMOXICILLIN 500 MG CAP PO STA (17:56)
[2016-09-27] MEDS ORDERED: ACETAMINOPHEN 500 MG TAB PO STA (17:56)
[2016-09-27] MEDS ORDERED: HYDR-906 PO (17:59)
[2016-09-27] MEDS ORDERED: KETOROLAC 30 MG INJ IM STA (17:59)
[2016-09-27] MEDS ORDERED: AMO500 PO (17:59)
--- NOTE | 2016-09-27 18:49 | ERD ---
ER Documentation Chief Complaint Date/Time DATE: 09/27/16 TIME: 18:44 Chief Complaint tooth pain x 3 days; HPI This is a 51-year-old female with history of diabetes type 2 and hypertension presenting the emergency room complaining of upper incisor pain for the past 3 days. Patient states the pain is constant, 8 out of 10 and radiating upward to her nose. Patient denies any fevers. Patient states that she has an appointment to see a dentist tomorrow. ROS All systems reviewed and are negative except as per history of present illness. Medications Home Meds Active Scripts Hydrocodone/Acetaminophen ([place] 5-325 Tablet) 1 Each Tablet, 1 TAB PO Q6H Y for PAIN, #20 TAB Prov:PORSHA BAIRD PA-C 09/27/16 Amoxicillin* (Amoxicillin*) 500 Mg Cap, 500 MG PO BID for 10 Days, CAP Prov:PORSHA BAIRD PA-C 09/27/16 Ondansetron (Zofran Odt) 4 Mg Tab.rapdis, 4 MG PO Q6, #10 Prov:KEV GIPSON DO 09/05/16 Polyethylene Glycol* (Miralax*) 17 Gm Powd.pack, 17 GM PO DAILY, #7 PACKET Prov:KEV GIPSON DO 09/05/16 Naproxen* (Naproxen*) 500 Mg Tablet, 500 MG PO BID Y for PAIN, #20 TAB Prov:KEV GIPSON DO 09/05/16 Ranitidine Hcl* (Zantac*) 150 Mg Tablet, 150 MG PO BID Y for EPIGASTRIC PAIN, # 30 TAB Prov:KEV GIPSON DO 09/05/16 Reported Medications Insulin Glargine* (Lantus*) 100 Unit/Ml Soln, 20 UNIT SC QHS, #1 VIAL 09/04/16 Lisinopril* (Lisinopril*) 10 Mg Tablet, 10 MG PO DAILY, #30 TAB 09/04/16 Metformin Hcl* (Metformin Hcl*) 1,000 Mg Tablet, 1000 MG PO WITH BREAKFAST DINNE , #60 TAB 09/04/16 Insulin Lispro (Humalog Kwikpen U-100) 100 Unit/1 Ml Insuln.pen, 7 UNIT SQ AC MEALS 09/04/16 Allergies Allergies: Coded Allergies: No Known Allergy (Unverified , 6/14/17) PMhx/Soc History of Surgery: Yes (hysterectomy) Anesthesia Reaction: No Hx Neurological Disorder: No Hx Respiratory Disorders: No Hx Cardiac Disorders: Yes (HTN) Hx Psychiatric Problems: No Hx Miscellaneous Medical Probl: No Hx Alcohol Use: No Hx Substance Use: No Hx Tobacco Use: No Smoking Status: Never smoker Physical Exam Vitals Vital Signs Date Time Temp Pulse Resp B/P Pulse Ox O2 Delivery O2 Flow Rate FiO2 09/27/16 17:31 98.8 110 18 158/81 98 Physical Exam Const: Well-developed well-nourished no acute distress Head: Atraumatic Eyes: Normal Conjunctiva ENT: DKA in the central incisor of the upper mouth, poor dental hygiene, no erythema or swelling of the face Neck: Full range of motion..~ No meningismus. Resp: Clear to auscultation bilaterally Cardio: Regular rate and rhythm, no murmurs Abd: Soft, non tender, non distended. Normal bowel sounds Skin: No petechiae or rashes Back: No midline or flank tenderness Ext: No cyanosis, or edema Neur: Awake and alert Psych: Normal Mood and Affect Results 24 hrs Current Medications Medications (Trade) Dose Ordered Sig/Theresa Route PRN Reason Start Time Stop Time Status Last Admin Dose Admin Amoxicillin (Amoxicillin) 500 mg ONCE STAT PO 09/27/16 17:56 09/27/16 17:58 DC 09/27/16 18:13 Acetaminophen (Tylenol Tab) 1,000 mg ONCE STAT PO 09/27/16 17:56 09/27/16 18:00 DC Ketorolac Tromethamine (Toradol) 30 mg ONCE STAT IM 09/27/16 17:59 09/27/16 18:00 DC 09/27/16 18:05 Procedures/MDM This is a 51-year-old female presenting to the emergency room with upper central incisor pain for the past 3 days. On examination there was evidence of a lot of decay, it appears that the patient will need a tooth extraction. Patient already has an appointment to see dentist tomorrow. In the ED patient was given Toradol for pain and her first dose of amoxicillin for possible tooth infection. Patient given prescription for short course of [place] until she is able to follow-up with her dentist tomorrow. There was no evidence of facial cellulitis or deep space infection. Patient is stable for discharge for home. Discussed return to the ER for any worsening symptoms. She understands and agrees with plan Departure Diagnosis: Primary Impression: Pain, dental Condition: Stable Patient Instructions: Dental Pain Additional Instructions: Visite a fisher edu cruz para un EXAMEN.Regrese a estas instalaciones si no se mejora alysa esperbamos o alysa le dijimos. [place] toda la medicina juan luis y alysa se le indic. Regrese a estas instalaciones si no se mejora alysa esperbamos o alysa le dijimos. La medicina que se le recet puede causarle sueo.NO DEBE MANEJAR NI OPERAR MAQUINARIAS PELIGROSAS mientras esta tomando esta medicina! PORSHA BAIRD PA-C Sep 27, 2016 18:49
== END 2016-09-27 18:26 | disposition home or self-care (01) ==
LOC: FTE 17:20
DX: K08.89 Other specified disorders of teeth and supporting structures (principal); I10 Essential (primary) hypertension; E11.9 Type 2 diabetes mellitus without complications; Z79.4 Long term (current) use of insulin; Z79.84 Long term (current) use of oral hypoglycemic drugs
CPT/HCPCS: J1885; Z7610; 96372

== ENCOUNTER 2017-02-07 13:31 | Emergency (ER) | payer OTHER ==
[~2017-02-07] VITALS: Ht 157.5 cm; Wt 54.0 kg
[~2017-02-07 13:31] MED LIST changes: +AMOX500C2 PO; +HYDR-906 PO
[2017-02-07 13:35] VITALS: Ht 157.5 cm; Wt 54.0 kg
--- NOTE | 2017-02-07 16:20 | ERD ---
ER Documentation Chief Complaint Chief Complaint DIZZINESS X2 DAYS, HEADACHE HPI 51 y/o female with history of hypertension, diabetes, hypercholesterolemia, presents to the emergency department with her son, complaining of 1 week with progressive weakness and fatigue. The patient started for the last 2 days she has been feeling dizzy with mild headache. Refers good compliance with medications, no side effects. Denies fevers, chills, no chest pain, no cough, no abdominal pain, no urinary symptoms. ROS SYSTEMIC symptoms: No fever, no chills, no night sweats EYE symptoms: No eyesight problems. OTOLARYNGEAL symptoms: No hearing loss. CARDIOVASCULAR symptoms: No chest pain or discomfort, no palpitations. PULMONARY symptoms: No dyspnea, no cough, no wheezing. GASTROINTESTINAL symptoms: No abdominal pain, no nausea, no vomiting SKIN no rashes MUSCULOSKELETAL symptoms: No arthralgias, no muscle aches. NEUROLOGY symptoms: No headache, no confusion, no syncope, no numbness or tingling. All systems reviewed and are negative except as per history of present illness. Medications Home Meds Active Scripts Hydrocodone/Acetaminophen ([place] 5-325 Tablet) 1 Each Tablet, 1 TAB PO Q6H Y for PAIN, #20 TAB Prov:PORSHA BAIRD PA-C 09/27/16 Amoxicillin* (Amoxicillin*) 500 Mg Cap, 500 MG PO BID for 10 Days, CAP Prov:PORSHA BAIRD PA-C 09/27/16 Ondansetron (Zofran Odt) 4 Mg Tab.rapdis, 4 MG PO Q6, #10 Prov:KEV GIPSON DO 09/05/16 Polyethylene Glycol* (Miralax*) 17 Gm Powd.pack, 17 GM PO DAILY, #7 PACKET Prov:KEV GIPSON DO 09/05/16 Naproxen* (Naproxen*) 500 Mg Tablet, 500 MG PO BID Y for PAIN, #20 TAB Prov:KEV GIPSON DO 09/05/16 Ranitidine Hcl* (Zantac*) 150 Mg Tablet, 150 MG PO BID Y for EPIGASTRIC PAIN, # 30 TAB Prov:KEV GIPSON DO 09/05/16 Reported Medications Insulin Glargine* (Lantus*) 100 Unit/Ml Soln, 20 UNIT SC QHS, #1 VIAL 09/04/16 Lisinopril* (Lisinopril*) 10 Mg Tablet, 10 MG PO DAILY, #30 TAB 09/04/16 Metformin Hcl* (Metformin Hcl*) 1,000 Mg Tablet, 1000 MG PO WITH BREAKFAST DINNE , #60 TAB 09/04/16 Insulin Lispro (Humalog Kwikpen U-100) 100 Unit/1 Ml Insuln.pen, 7 UNIT SQ AC MEALS 09/04/16 Allergies Allergies: Coded Allergies: No Known Allergy (Unverified , 09/27/16) PMhx/Soc History of Surgery: Yes (hysterectomy) Anesthesia Reaction: No Hx Neurological Disorder: No Hx Respiratory Disorders: No Hx Cardiac Disorders: Yes (HTN) Hx Psychiatric Problems: No Hx Miscellaneous Medical Probl: Yes (DM) Hx Alcohol Use: No Hx Substance Use: No Hx Tobacco Use: No Smoking Status: Never smoker Physical Exam Vitals Vital Signs Date Time Temp Pulse Resp B/P Pulse Ox O2 Delivery O2 Flow Rate FiO2 02/07/17 19:18 98.7 82 16 134/74 100 Room Air 02/07/17 13:35 99.0 88 20 118/69 99 Physical Exam Patient is in no acute distress, vital signs stable. Alert and fully oriented. EYES: PERRLA, EOMI, Sclera and conjunctiva appear normal. EARS: Canals clear, tympanic membranes WNL THROAT: Normal oropharynx. NECK: Supple, No lymphadenopathy. Full ROM without pain or tenderness. HEART: RRR, no rubs, murmurs, clicks or gallops. LUNGS: Clear to auscultation. ABDOMEN: Soft, non-tender without masses or hepatosplenomegaly. EXTREMITIES: No edema bilaterally. MUSC: Full ROM, no deformity, normal back exam Result Diagram: 02/07/17 1650 02/07/17 1650 Results 24 hrs Laboratory Tests Test 02/07/17 16:26 02/07/17 16:50 Bedside Urine pH (LAB) 5.0 Bedside Urine Protein (LAB) 1+ Bedside Urine Glucose (UA) 0.50% Bedside Urine Ketones (LAB) Negative Bedside Urine Blood Negative Bedside Urine Nitrite (LAB) Negative Bedside Urine Leukocyte Esterase (L Negative White Blood Count 11.610^3/ul Red Blood Count 4.0110^6/ul Hemoglobin 12.2g/dl Hematocrit 36.4% Mean Corpuscular Volume 90.8fl Mean Corpuscular Hemoglobin 30.4pg Mean Corpuscular Hemoglobin Concent 33.5g/dl Red Cell Distribution Width 13.1% Platelet Count 56004^3/UL Mean Platelet Volume 10.7fl Neutrophils % 65.2% Lymphocytes % 27.4% Monocytes % 5.1% Eosinophils % 1.4% Basophils % 0.4% Nucleated Red Blood Cells % 0.0/100WBC Neutrophils # 7.610^3/ul Lymphocytes # 3.210^3/ul Monocytes # 0.610^3/ul Eosinophils # 0.210^3/ul Basophils # 0.110^3/ul Nucleated Red Blood Cells # 0.010^3/ul Sodium Level 139mmol/L Potassium Level 4.5mmol/L Chloride Level 103mmol/L Carbon Dioxide Level 25mmol/L Anion Gap 16 Blood Urea Nitrogen 29mg/dl Creatinine 0.72mg/dl Glucose Level 293mg/dl Calcium Level 10.4mg/dl Total Bilirubin 0.5mg/dl Direct Bilirubin 0.00mg/dl Indirect Bilirubin 0.5mg/dl Aspartate Amino Transf (AST/SGOT) 19IU/L Alanine Aminotransferase (ALT/SGPT) 35IU/L Alkaline Phosphatase 132IU/L Total Protein 8.3g/dl Albumin 4.2g/dl Globulin 4.10g/dl Albumin/Globulin Ratio 1.02 Thyroid Stimulating Hormone (TSH) 0.791MIU/L EKG: NSR, Normal intervals, no ST elevation or depression, no T wave inversion Procedures/MDM 51-year-old female, with history of diabetes, hypertension, presents complaining of 1 week with progressive fatigue. Differential diagnosis includes uncontrolled diabetes, viral infection, electrolyte imbalance, vertigo. Physical examination unremarkable, vital signs stable. CBC in normal range. CMP: shows out of control DM. Normal urinalysis. At the end of the encounter when labs and findings were discussed with patient and family, they all agreed that the patient has been under a lot of stress at home for problems with one of her sons and she is not sleeping well and is not eating healthy. The patient will be discharged home with recommendations for BS control,healthy diet and increase exercise. If symptoms persist, worsen or new symptoms develop, then patient is instructed to follow-up with the primary care provider. If the patient is unable to see the primary care provider, then return to the ED as needed. Departure Diagnosis: Primary Impression: Fatigue Additional Impressions: Anxiety Worried well Condition: Stable PARKER SUN MD Feb 07, 2017 16:20
[2017-02-07 16:25] LABS: URINE BLOOD (Dip) POC Negative (NEGATIVE)
[2017-02-07 17:22] LABS: BASOPHIL # 0.1 10^3/ul (0.0-0.1); BASOPHILS % 0.4 % (0.0-2.0); EOSINOPHILS # 0.2 10^3/ul (0.0-0.5); EOSINOPHILS % 1.4 % (0.0-7.0); HEMATOCRIT 36.4 % (37.0-47.0); HEMOGLOBIN 12.2 g/dl (12.0-16.0); LYMPHOCYTES # 3.2 10^3/ul (0.8-2.9); LYMPHOCYTES % 27.4 % (15.0-51.0); MEAN CORPUSCULAR HEMOGLOBIN 30.4 pg (29.0-33.0); MEAN CORPUSCULAR HGB CONC 33.5 g/dl (32.0-37.0); MEAN CORPUSCULAR VOLUME 90.8 fl (82.0-101.0); MEAN PLATELET VOLUME 10.7 fl (7.4-10.4); MONOCYTE # 0.6 10^3/ul (0.3-0.9); MONOCYTES % 5.1 % (0.0-11.0); NEUTROPHIL # 7.6 10^3/ul (1.6-7.5); NEUTROPHILS % 65.2 % (39.0-77.0); PLATELET COUNT 285 10^3/UL (140-415); RED BLOOD COUNT 4.01 10^6/ul (4.20-5.40); RED CELL DISTRIBUTION WIDTH 13.1 % (11.5-14.5); WHITE BLOOD COUNT 11.6 10^3/ul (4.8-10.8)
[2017-02-07 17:48] LABS: ALBUMIN 4.2 g/dl (3.3-4.9); ALBUMIN/GLOBULIN RATIO 1.02; BILIRUBIN,INDIRECT 0.5 mg/dl (0-1.1); BILIRUBIN,TOTAL 0.5 mg/dl (0.2-1.3); CALCIUM 10.4 mg/dl (8.4-10.2); CREATININE 0.72 mg/dl (0.44-1.00); POTASSIUM 4.5 mmol/L (3.5-5.1); TOTAL PROTEIN 8.3 g/dl (6.1-8.1)
[2017-02-07 18:19] LABS: THYROID STIMULATING HORMONE 0.791 MIU/L (0.465-4.680)
[2017-02-07 19:18] VITALS: BP 134/74; PULSE 82; RESP 16; TEMP 98.7
== END 2017-02-07 19:19 | disposition home or self-care (01) ==
LOC: FTE 13:31
DX: R42 Dizziness and giddiness (principal); F41.9 Anxiety disorder, unspecified; I10 Essential (primary) hypertension; E11.9 Type 2 diabetes mellitus without complications; Z71.1 Person with feared health complaint in whom no diagnosis is made; Z79.4 Long term (current) use of insulin; Z79.84 Long term (current) use of oral hypoglycemic drugs
CPT/HCPCS: 36415; 80053; 81003; 84443; 85025; 93005; Z7502

== ENCOUNTER 2017-07-12 22:50 | Emergency (ER) | END 2017-07-13 06:07 | disposition left against medical advice (07) ==

== ENCOUNTER 2017-10-25 12:39 | Emergency (ER) | END 2017-10-25 17:29 | disposition home or self-care (01) ==

== ENCOUNTER → 2017-10-26 | Emergency (ER) | END | disposition home or self-care (01) ==